=== PATIENT | female | born 1990 | race Native Hawaiian/Other Pacific Islander ===

== ENCOUNTER 2018-03-07 11:02 | Emergency (ER) | payer OTHER ==
[~2018-03-07] VITALS: Ht 160 cm; Wt 49.9 kg
[2018-03-07 11:12] VITALS: BP 109/62; TEMP 97.9
== END 2018-03-07 11:55 | disposition home or self-care (01) ==
LOC: ED 11:02
DX: N93.8 Other specified abnormal uterine and vaginal bleeding (principal)
CPT/HCPCS: 81000; 81025; 99282; J1885

== ENCOUNTER 2019-06-15 10:12 | Outpatient (CLI) | payer OTHER | END 2019-06-15 19:25 | disposition home or self-care (01) | LOC: LABW 10:12 | DX: R53.82 Chronic fatigue, unspecified (principal); Z87.898 Personal history of other specified conditions | CPT/HCPCS: 36415; 80074; 80076 ==

== ENCOUNTER 2019-08-10 10:59 | Outpatient (CLI) | payer OTHER | END 2019-08-10 19:10 | disposition home or self-care (01) | LOC: LABW 10:59 | DX: B18.2 Chronic viral hepatitis C (principal) | CPT/HCPCS: 36415; 87522; 87902 ==

== ENCOUNTER 2020-03-09 15:08 | Emergency (ER) | payer OTHER ==
[~2020-03-09] VITALS: Ht 160 cm; Wt 66.7 kg
[2020-03-09 17:35] VITALS: BP 120/72; TEMP 98.7
== END 2020-03-09 17:41 | disposition home or self-care (01) ==
LOC: ED 15:08
DX: B37.3 Candidiasis of vulva and vagina (principal); Z3A.31 31 weeks gestation of pregnancy
CPT/HCPCS: 81000; 87210; 99284